=== PATIENT | female | born 1940 | race Caucasian/White ===

== ENCOUNTER 2017-02-28 14:05 | Outpatient (CLI) | payer MEDICARE, OTHER ==
--- NOTE | 2017-03-01 06:54 | Diagnostic Imaging Report ---
NANCY SHEARER [facility] [id number] [facility], [facility] [address] [address] Report Submission Date: Feb 28, 2017 2:44:39 PM CDT Patient Study Name: ROXANA FOSTER Date: Feb 28, 2017 2:18:23 PM CDT Modality Type: CR Gender: F Description: PELVIS : 38 Institution: [facility] Physician: NANCY SHEARER Examination: Plain film pelvis History: Discomfort Comparison exams: None provided Findings: 5 views of the pelvis and hips demonstrates osteopenia. Articular degenerative changes of the hips, pubic symphysis, lumbar spine, and sacroiliac joints. No fracture line or dislocation. Numerous pelvic and soft tissue calcifications/phleboliths. Superior and inferior pubic rami and iliac wings are without gross abnormality. Impression: Osteopenia and degenerative changes. No fracture dislocation. Electronically signed on Feb 28, 2017 2:44:39 PM CDT by: Kameron MELO
== END 2017-02-28 14:06 ==
LOC: RAD 14:05
PROVIDERS: ATTEND Nurse Practitioner Family
DX: M25.551 Pain in right hip (principal); M25.552 Pain in left hip; M62.838 Other muscle spasm
CPT/HCPCS: 73521